=== PATIENT | male | born 1995 | race Two or more races ===

== ENCOUNTER 2024-03-29 14:49 | Emergency (ER) | payer MEDICAID, SELFPAY ==
[2024-03-29 14:49] VITALS: BMI 28.1
[2024-03-29 15:10] VITALS: BP 136/88; PULSE 98; RESP 16; TEMP 37.1; O2SAT 98
--- NOTE | 2024-03-29 15:11 | EDNOTE_ITS ---
<Statement entered by Padmini Ferguson MD - 03/29/24 17:52> As co-signing physician, I was present and available for consult prn. I concur with the plan and care as documented by the midlevel provider. Nausea/Vomit./Diarrhea-RME/HPI General Chief complaint: Nausea/Vomiting/Diarrhea Stated complaint: VOMITING TODAY Time Seen by Provider: 03/29/24 14:53 Arrival date/time: 03/29/24 14:49 28-year-old male presents emergency department complaints of nausea vomiting began today patient reports drinking alcohol last night. Patient ports no headache no dizziness no chest pain no shortness of breath Limitations: no limitations Related Data Previous Rx's ?Medication ?Instructions ?Recorded aluminum-mag hydroxide-simethicone 10 ml PO Q6H PRN indigestion #355 03/07/19 200 mg-200 mg-20 mg/5 mL oral susp mL (Maalox Advanced) ondansetron 4 mg disintegrating 4 mg PO Q8H PRN nausea and 03/07/19 tablet vomiting #10 tabs ibuprofen 800 mg tablet 800 mg PO TID #30 tabs 05/19/19 ibuprofen 800 mg tablet 800 mg PO TID PRN pain #30 tabs 06/20/19 ibuprofen 800 mg tablet 800 mg PO TID PRN pain #30 tabs 08/28/20 azithromycin 500 mg tablet See Rx Instructions PO .COMPLEX #3 09/13/23 tabs loperamide 2 mg capsule 2 mg PO Q6H PRN loose stool #10 09/13/23 (Anti-Diarrheal (loperamide)) caps ondansetron 4 mg disintegrating 4 mg PO Q8H PRN nausea and 03/29/24 tablet vomiting #10 tabs Allergies Allergy/AdvReac Type Severity Reaction Status Date / Time No Known Allergies Allergy Verified 03/29/24 14:50 Review of Systems Review of Systems Systems Reviewed: All systems reviewed, normal except as documented Constitutional Constitutional: Reports system reviewed and no additional complaints, except as documented, Denies fever(s) and Denies headache(s) Eyes Eyes: Reports system reviewed and no additional complaints, except as documented and Denies blurry vision ENT Ears, Nose, Mouth, and Throat: Reports system reviewed and no additional complaints, except as documented, Denies headache(s), Denies nasal congestion and Denies nasal discharge Cardiovascular Cardiovascular: Reports system reviewed and no additional complaints, except as documented, Denies chest pain and Denies dyspnea Respiratory Respiratory: Reports system reviewed and no additional complaints, except as documented, Denies chest congestion, Denies cough and Denies dyspnea Gastrointestinal Gastrointestinal: Reports system reviewed and no additional complaints, except as documented, Denies abdominal pain, Reports nausea and Reports vomiting Integumentary/Breasts Skin/Breast: Reports system reviewed and no additional complaints, except as documented and Denies rash Neurologic Neurologic: Reports system reviewed and no additional complaints, except as documented, Reports as per HPI and Denies headache(s) Past Medical History Past Medical History NEUROLOGIC: Negative Neurological Disorders CARDIAC: Negative Cardiac Disorders ED Exam General Limitations: Present no limitations General appearance: Present alert and in no apparent distress Head Head exam: Present atraumatic, normocephalic and normal inspection Eye Eye exam: Present normal appearance, PERRL and EOMI; Absent conjunctival injection ENT ENT exam: Present normal exam, normal oropharynx and mucous membranes moist Neck Neck exam: Present normal inspection, full ROM and trachea midline Chest Chest inspection: Present normal inspection and symmetric chest wall rise Respiratory Respiratory exam: Present normal lung sounds bilaterally; Absent respiratory distress Cardiovascular Cardiovascular exam: Present regular rate, normal rhythm and normal heart sounds Abdominal Exam Abdominal exam: Present soft and normal bowel sounds; Absent distention, tenderness, guarding, rebound or rigidity Extremities Exam Extremities exam: Present normal inspection and full ROM Back Exam Back exam: Present normal inspection and full ROM Neurological Exam Neurological exam: Present alert, oriented X3, CN II-XII intact, normal gait and reflexes normal; Absent motor sensory deficit Psychiatric Psychiatric exam: Present normal affect and normal mood Skin Skin exam: Present warm, dry, intact and normal color; Absent rash Course Quality Measures none Orders Category Date Time Status Bedside Influenza A&B Antigen Test NOW Care 03/29/24 15:11 Completed Metoclopramide Inj [Reglan Inj] Med 03/29/24 15:11 Discontinued 10 mg IM X1 ONE Ondansetron Odt [Zofran Odt] Med 03/29/24 15:11 Discontinued 4 mg PO X1 ONE Vital Signs Vital signs: Vital Signs Temperature 98.7 F 03/29/24 15:10 Pulse Rate 98 03/29/24 15:10 Respiratory Rate 16 03/29/24 15:10 Blood Pressure 136/88 H 03/29/24 15:10 Pulse Oximetry (%) 98 03/29/24 15:10 Oxygen Delivery Method Room Air 03/29/24 15:10 O2 saturation 98% on room air within normal limits Nausea/Vomiting/Diarrhea MDM Narrative MDM Narrative:: 28-year-old male presents emergency department complaints of nausea vomiting began today patient reports drinking alcohol last night. Patient ports no headache no dizziness no chest pain no shortness of breath On exam patient does not appear ill or toxic patient does not appear in acute distress Patient checked for flu which came back positive Patient medicated for vomiting Patient discharged home in no distress to follow-up with primary care doctor in the next 24 to 48 hours and for any worsening symptoms to return to the ER immediately Patient data External records reviewed:: [facility] previous records Clinical information provided by:: patient Social determinants that could affect healthcare access:: none Patient has the following chronic illnesses:: None How is presenting disease/condition affected by chronic disease/condition?: no chronic disease Evaluation data The following diagnostics were reviewed and interpreted by me:: lab results Lab and/or radiology exams considered but not ordered:: Lab obtained Interpretation Summary: Reviewed by me Medications / Prescriptions Medications / Prescriptions considered but not ordered:: Given Medication administrations:: Medication Administration History Discontinued Medications Metoclopramide HCl (Metoclopramide Inj 5 Mg/Ml Vial 2 Ml) 10 mg IM X1 ONE; Protocol Stop: 03/29/24 15:12 Last Admin: 03/29/24 15:15 Dose: 10 mg Documented By: Ondansetron HCl (Ondansetron Odt 4 Mg Tabrap) 4 mg PO X1 ONE; Protocol Stop: 03/29/24 15:12 Last Admin: 03/29/24 15:14 Dose: 4 mg Documented By: Given Consultations Consultation(s) initiated? (list below): No Diagnosis Nausea Differential Diagnosis: gastroenteritis and other (Nausea vomiting) Most likely diagnosis given after review of the tests above:: Nausea vomiting Admission Indicated Admission indicated?: not indicated Admission Request Was there a request for admission?: No Disposition Plan Disposition Plan: Discharge Discharge Attestation Discharge Attestation: The patient and all family members were given an opportunity to ask questions and understood the discharge instructions. Discharge instructions specifically effects, indications for sooner follow up or return to the emergency department, and the expected course of current diagnosis. Patient condition: Stable Discharge Plan Plan Patient Disposition: HOME (Self Care) Disposition Comment: Stable Prescriptions/Referrals Prescriptions/Med Rec: New ondansetron 4 mg tablet,disintegrating 4 mg PO Q8H PRN (Reason: nausea and vomiting) Qty: 10 0RF No Action alum-mag hydroxide-simeth [Maalox Advanced] 200-200-20 mg/5 mL suspension 10 ml PO Q6H PRN (Reason: indigestion) Qty: 355 0RF ondansetron 4 mg tablet,disintegrating 4 mg PO Q8H PRN (Reason: nausea and vomiting) Qty: 10 0RF ibuprofen 800 mg tablet 800 mg PO TID PRN (Reason: pain) Qty: 30 0RF ibuprofen 800 mg tablet 800 mg PO TID Qty: 30 0RF ibuprofen 800 mg tablet 800 mg PO TID PRN (Reason: pain) Qty: 30 0RF azithromycin 500 mg tablet See Rx Instructions .ROUTE .COMPLEX Qty: 3 0RF Rx Instructions: For 500 mg dose pack: take 500 mg once daily for 3 days loperamide [Anti-Diarrheal (loperamide)] 2 mg capsule 2 mg PO Q6H PRN (Reason: loose stool) Qty: 10 0RF Problem List Clinical Impression: Nausea & vomiting, Influenza A Patient/Caregiver Discharge Instructions Education Materials: ED Vomiting (Adult) Additional Instructions: Please follow up with your primary care doctor in the next 24-48hrs for any worsening symptoms return here immediately Print Language: Czech Stand Alone Forms: Renetta Award Info., Work/School Release, Patient Portal Info Letter PA/HOISTER Supervising Physician PA/HOISTER Supervising Physician: Dr. FERGUSON
[2024-03-29] MEDS: ONDANSETRON ODT 4 MG TABRAP PO (15:14)
[2024-03-29] MEDS: METOCLOPRAMIDE INJ 5 MG/ML VIAL 2 ML 10 MG IM (15:15)
== END 2024-03-29 15:25 | disposition home or self-care (01) ==
LOC: SERX 15:26
PROVIDERS: Emergency Provider Emergency Medicine; PCP Family Medicine
DX: J10.1 Influenza due to other identified influenza virus with other respiratory manifestations (principal)
CPT/HCPCS: 87400; 96372; 99283; J2765; Q0162

== ENCOUNTER 2024-04-23 14:16 | Emergency (ER) | payer MEDICAID, SELFPAY ==
[2024-04-23 14:17] VITALS: BMI 27.3
[2024-04-23 14:29] VITALS: BP 148/89; PULSE 100; RESP 18; TEMP 37.7; O2SAT 97
--- NOTE | 2024-04-23 14:41 | EDNOTE_ITS ---
Upper Respiratory Inf. RME/HPI General Chief Complaint: Flu Like Symptoms Stated Complaint: Flu like symptoms: Cough, fever, bodyaches, nausea Time Seen by Provider: 04/23/24 14:23 Arrival date/time: 04/23/24 14:16 This is a 28-year-old male that comes in with complaints of cough, congestion, fever, chills, body aches and nausea that started on Wednesday. Patient reports that his girlfriend is currently sick as well along with coworkers at work. Patient denies any past medical history. Patient reports taking DayQuil and Tylenol. Related Data Previous Rx's ?Medication ?Instructions ?Recorded aluminum-mag hydroxide-simethicone 10 ml PO Q6H PRN in digestion #355 03/07/19 200 mg-200 mg-20 mg/5 mL oral susp mL (Maalox Advanced) ondansetron 4 mg disintegrating 4 mg PO Q8H PRN nausea and 03/07/19 tablet vomiting #10 tabs ibuprofen 800 mg tablet 800 mg PO TID #30 tabs 05/19 ibuprofen 800 mg tablet 800 mg PO TID PRN pain #30 t abs 06/20/19 ibuprofen 800 mg tablet 800 mg PO TID PRN pain #30 t abs 08/28/20 azithromycin 500 mg tablet See Rx Instructions PO .COM PLEX #3 09/13/23 tabs loperamide 2 mg capsule 2 mg PO Q6H PRN loose stool #10 09/13/23 (Anti-Diarrheal (loperamide)) caps ondansetron 4 mg disintegrating 4 mg PO Q8H PRN nausea and 03/29/24 tablet vomiting #10 tabs ibuprofen 800 mg tablet 800 mg PO Q6H PRN pain #14 t abs 04/23/24 ondansetron 4 mg disintegrating 4 mg PO Q6H PRN nausea and 04/23/24 tablet vomiting #14 tabs Allergies Allergy/AdvReac Type Severity Reaction Status Date / Time No Known Allergies Allergy Verified 03/29/24 14:50 Review of Systems Review of Systems Systems Reviewed: All systems reviewed, normal except as documented Past Medical History Past Medical History NEUROLOGIC: Negative Neurological Disorders CARDIAC: Negative Cardiac Disorders ED Exam General General appearance: Present alert and in no apparent distress Head Head exam: Present atraumatic Eye Eye exam: Present normal appearance, PERRL and EOMI ENT ENT exam: Present normal exam, normal oropharynx and mucous membranes moist Neck Neck exam: Present normal inspection, full ROM and trachea midline Chest Chest inspection: Present normal inspection and symmetric chest wall rise Respiratory Respiratory exam: Present normal lung sounds bilaterally Cardiovascular Cardiovascular exam: Present regular rate, normal rhythm and normal heart sounds Abdominal Exam Abdominal exam: Present soft Extremities Exam Extremities exam: Present normal inspection and full ROM Back Exam Back exam: Present normal inspection and full ROM Neurological Exam Neurological exam: Present alert, oriented X3 and CN II-XII intact Psychiatric Psychiatric exam: Present normal affect and normal mood Skin Skin exam: Present warm, dry, intact and normal color Course Quality Measures none Orders Category Date Time Status Bedside COVID-19 Antigen Test NOW Care 04/23/24 14:40 Completed Bedside Influenza A&B Antigen Test NOW Care 04/23/24 14:40 Completed Ibuprofen Tab [Motrin Tab] Med 04/23/24 14:40 Discontinued 800 mg PO X1 ONE Ondansetron Odt [Zofran Odt] Med 04/23/24 14:40 Discontinued 4 mg PO X1 ONE Vital Signs Vital signs: Vital Signs Temperature 99.9 F 04/23/24 14:29 Pulse Rate 100 04/23/24 14:29 Respiratory Rate 18 04/23/24 14:29 Blood Pressure 148/89 H 04/23/24 14:29 Pulse Oximetry (%) 97 04/23/24 14:29 Oxygen Delivery Method Room Air 04/23/24 14:29 Upper Respiratory Infection MDM Narrative MDM Narrative:: Pt given ibuprofen and zofran. Pt positive for influenza A. Will tx with supportive care. Pt told to follow up with primary provider in 1-2 days. Come back to ED if symptoms change or worsen. Patient data External records reviewed:: [facility] previous records Clinical information provided by:: patient Social determinants that could affect healthcare access:: none Patient has the following chronic illnesses:: none How is presenting disease/condition affected by chronic disease/condition?: no chronic disease Evaluation data The following diagnostics were reviewed and interpreted by me:: lab results Lab and/or radiology exams considered but not ordered:: none Interpretation Summary: see note Medications / Prescriptions Medications or Prescriptions considered but not ordered:: none Medication administrations:: Medication Administration History Discontinued Medications Ibuprofen (Ibuprofen Tab 400 Mg Tablet) 800 mg PO X1 ONE Stop: 04/23/24 14:41 Last Admin: 04/23/24 15:14 Dose: 800 mg Documented By: Ondansetron HCl (Ondansetron Odt 4 Mg Tabrap) 4 mg PO X1 ONE; Protocol Stop: 04/23/24 14:41 Last Admin: 04/23/24 15:14 Dose: 4 mg Documented By: see mar Consultations Consultation(s) initiated? (list below): No Diagnosis Upper Respiratory Differential Diagnosis: upper respiratory infection, viral infection and influenza Most likely diagnosis given after review of the tests above:: influenza Admission Indicated Admission indicated?: not indicated Admission Request Was there a request for admission?: No Disposition Plan Disposition Plan: Discharge Discharge Attestation Discharge Attestation: The patient and all family members were given an opportunity to ask questions and understood the discharge instructions. Discharge instructions specifically effects, indications for sooner follow up or return to the emergency department, and the expected course of current diagnosis. Patient condition: Stable Discharge Plan Plan Patient Disposition: HOME (Self Care) Patient condition on transfer: Stable Prescriptions/Referrals Prescriptions/Med Rec: New ibuprofen 800 mg tablet 800 mg PO Q6H PRN (Reason: pain) Qty: 14 0RF ondansetron 4 mg tablet,disintegrating 4 mg PO Q6H PRN (Reason: nausea and vomiting) Qty: 14 0RF No Action alum-mag hydroxide-simeth [Maalox Advanced] 200-200-20 mg/5 mL suspension 10 ml PO Q6H PRN (Reason: indigestion) Qty: 355 0RF ondansetron 4 mg tablet,disintegrating 4 mg PO Q8H PRN (Reason: nausea and vomiting) Qty: 10 0RF ibuprofen 800 mg tablet 800 mg PO TID PRN (Reason: pain) Qty: 30 0RF ibuprofen 800 mg tablet 800 mg PO TID Qty: 30 0RF ibuprofen 800 mg tablet 800 mg PO TID PRN (Reason: pain) Qty: 30 0RF azithromycin 500 mg tablet See Rx Instructions .ROUTE .COMPLEX Qty: 3 0RF Rx Instructions: For 500 mg dose pack: take 500 mg once daily for 3 days loperamide [Anti-Diarrheal (loperamide)] 2 mg capsule 2 mg PO Q6H PRN (Reason: loose stool) Qty: 10 0RF ondansetron 4 mg tablet,disintegrating 4 mg PO Q8H PRN (Reason: nausea and vomiting) Qty: 10 0RF Referrals: Johny Cortes MD [Primary Care Provider] - In 1 week Problem List Clinical Impression: Influenza A, Vomiting Patient/Caregiver Discharge Instructions Discharge Activity: activity as tolerated Education Materials: ED Influenza (Adult), ED Vomiting (Adult) Additional Instructions: Follow up with primary provider in 1-2 days. Come back to ED if symptoms change or worsen. Drink plenty of fluids. for fever may alternate tylenol and ibuprofen. Print Language: Romansh Stand Alone Forms: Renetta Award Info., Patient Portal Info Letter PA/FISH SKINNING MACHINE FEEDER Supervising Physician PA/F[employer] SKINNING MACHINE FEEDER Supervising Physician: lucas
[2024-04-23] MEDS: IBUPROFEN TAB 400 MG TABLET 800 MG PO (15:14)
[2024-04-23] MEDS: ONDANSETRON ODT 4 MG TABRAP PO (15:14)
== END 2024-04-23 16:15 | disposition home or self-care (01) ==
PROVIDERS: Emergency Provider Emergency Medicine; PCP Family Medicine
DX: J10.1 Influenza due to other identified influenza virus with other respiratory manifestations (principal)
CPT/HCPCS: 87400; 87811; 99283; Q0162; A9270

== ENCOUNTER → 2024-08-18 | Outpatient (CLI) | payer MEDICAID, SELFPAY ==
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
== END | disposition home or self-care (01) ==
PROVIDERS: PCP Physician Assistant
DX: S62.390A Other fracture of second metacarpal bone, right hand, initial encounter for closed fracture (principal); Y09 Assault by unspecified means
CPT/HCPCS: 73110; 73130

== ENCOUNTER 2024-08-26 20:09 | Emergency (ER) | payer MEDICAID, SELFPAY ==
[2024-08-26 20:10] VITALS: BMI 27.3
--- NOTE | 2024-08-26 20:53 | EDNOTE_ITS ---
Nausea/Vomit./Diarrhea-RME/HPI General Chief complaint: Nausea/Vomiting/Diarrhea Stated complaint: DIARRHEA FOR 4 DAYS Time Seen by Provider: 08/26/24 20:53 Arrival date/time: 08/26/24 20:09 RME / HPI RME / HPI Narrative: This section includes all my notes and documentations, including HPI, PE, and ED course. Jack Jarvis MD HPI: 29 y/o male with Hx of Ulcer presents to ED c/o aggressive diarrhea and abdominal pain x 4 days with nausea and anorexia. No fever. No other complaints. ROS: All negative except as documented in HPI. Physical Exam: General: Alert and oriented. No acute distress when remaining still. Eyes: Conjunctivae and lids clear. ENT: No nasal congestion. Neck: Supple. Heart: RRR. Lungs: No respiratory distress. Good air movement. No rhonchi, wheezing, rales. Abdomen: Soft and nontender. Normal bowel sounds. No distension. No rebound or guarding. Back: No CVA tenderness. Skin: Warm and dry. Neuro: Alert and oriented X 3. I reviewed all diagnostic test results. My interpretation of the abdomen x-ray is no acute findings. Blood tests unremarkable. At this point, diagnoses include gastroenteritis. Treatment here included Zofran, Flagyl. Recommend outpatient treatment. Based on my best medical judgment, made decision no further evaluation or treatment indicated at this time. Patient understands and agrees to the [facility] instructions customized and printed, see below. Discharge Instructions from Dr. Jarvis: 1. After evaluation, you have stomach flu.? 2. Take Flagyl to kill the germs causing the infection. 3. Your job is to stay hydrated.? Zofran for nausea/vomiting.? Increase oral fluid and maintain clear urine.? If dark or yellow, increase oral fluid. 4. Do not take any medications to stop your diarrhea.? But try to replenish the fluid and electrolytes you are losing. 5. Some good choices are water (but not only water because it will cause electrolyte abnormalities), sports drinks like Gatorade (with less sugar content), coconut water, chicken stock, and other fluid with electrolytes (like Pedialyte). 6. See your private doctor on 08/31/2024 if not completely better. 7. Seek immediate medical care with worsening or with any concerns. Jack Jarvis MD Related Data Previous Rx's ?Medication ?Instructions ?Recorded aluminum-mag hydroxide-simethicone 10 ml PO Q6H PRN in digestion #355 03/07/19 200 mg-200 mg-20 mg/5 mL oral susp mL (Maalox Advanced) ondansetron 4 mg disintegrating 4 mg PO Q8H PRN nausea and 03/07/19 tablet vomiting #10 tabs ibuprofen 800 mg tablet 800 mg PO TID #30 tabs 05/19 ibuprofen 800 mg tablet 800 mg PO TID PRN pain #30 t abs 06/20/19 ibuprofen 800 mg tablet 800 mg PO TID PRN pain #30 t abs 08/28/20 azithromycin 500 mg tablet See Rx Instructions PO .COM PLEX #3 09/13/23 tabs loperamide 2 mg capsule 2 mg PO Q6H PRN loose stool #10 09/13/23 (Anti-Diarrheal (loperamide)) caps ondansetron 4 mg disintegrating 4 mg PO Q8H PRN nausea and 03/29/24 tablet vomiting #10 tabs ibuprofen 800 mg tablet 800 mg PO Q6H PRN pain #14 t abs 04/23/24 ondansetron 4 mg disintegrating 4 mg PO Q6H PRN nausea and 04/23/24 tablet vomiting #14 tabs metronidazole 500 mg tablet 500 mg PO BID 3 days #6 ta bs 08/26/24 ondansetron 4 mg disintegrating 4 mg PO TID PRN nausea and 08/26/24 tablet vomiting 30 days #10 tabs Allergies Allergy/AdvReac Type Severity Reaction Status Date / Time No Known Allergies Allergy Verified 08/26/24 20:10 Review of Systems Review of Systems Systems Reviewed: All systems reviewed, normal except as documented Past Medical History Past Medical History GASTROINTESTINAL: Positive Ulcer ED Exam Narrative Physical exam: Refer to HPI above Course Quality Measures none Orders Category Date Time Status KUB [XR abdomen 1V] Stat Exams 08/26/24 20:54 Completed Amylase Stat Lab 08/26/24 21:26 Completed Bilirubin,Direct Stat Lab 08/26/24 21:26 Completed CBC Stat Lab 08/26/24 21:26 Completed CMP [Comprehensive Metabolic Panel] Stat Lab 08/26/24 21:26 Completed Lipase Stat Lab 08/26/24 21:26 Completed Magnesium Stat Lab 08/26/24 21:26 Completed Ondansetron Odt [Zofran Odt] Med 08/26/24 22:43 Discontinued 4 mg PO X1 ONE metroNIDAZOLE [Flagyl] Med 08/26/24 22:43 Discontinued 500 mg PO X1 ONE Vital Signs Vital signs: Vital Signs Temperature 98.3 F 08/26/24 20:56 Pulse Rate 74 08/26/24 20:56 Respiratory Rate 18 08/26/24 20:56 Blood Pressure 130/66 08/26/24 20:56 Pulse Oximetry (%) 100 08/26/24 20:56 Oxygen Delivery Method Room Air 08/26/24 20:56 Nausea/Vomiting/Diarrhea MDM Narrative MDM Narrative:: Scribe Attestation: IJanki, am scribing for and in the presence of Dr. Jarvis. Provider Notation: Although this document has been carefully reviewed, there may still be some phonetic and other typographical errors.? These errors are purely grammatical due to imperfections in the software program and should not be construed in any way to? compromise the substance of the patient's medical care during this visit. 29 y/o male with Hx of Ulcer presents to ED c/o aggressive diarrhea and abdominal pain x 4 days. He states abdominal pain began after he discontinued Ibuprofen for forearm fracture. Patient has tried Pepto Bismal and Imodium with some relief. Denies cough and congestion, or any present abdominal pain. No other complaints. Patient data External records reviewed:: [facility] previous records (Reviewed prior ED records from 04/23/24. Patient was seen for Influenza A.) Clinical information provided by:: patient Social determinants that could affect healthcare access:: none Patient has the following chronic illnesses:: Ulcer How is presenting disease/condition affected by chronic disease/condition?: exacerbated by Evaluation data The following diagnostics were reviewed and interpreted by me:: lab results and radiology exam(s) Lab and/or radiology exams considered but not ordered:: None Interpretation Summary: I reviewed all diagnostic test results. My interpretation of the abdomen x-ray is no acute findings. Blood tests unremarkable. Medications / Prescriptions Medications / Prescriptions considered but not ordered:: None Medication administrations:: Medication Administration History Discontinued Medications Metronidazole (Metronidazole 250 Mg Tablet) 500 mg PO X1 ONE Stop: 08/26/24 22:44 Last Admin: 08/26/24 23:00 Dose: 500 mg Documented By: RACHEL Ondansetron HCl (Ondansetron Odt 4 Mg Tabrap) 4 mg PO X1 ONE; Protocol Stop: 08/26/24 22:44 Last Admin: 08/26/24 23:00 Dose: 4 mg Documented By: Korina Lam. Consultations Consultation(s) initiated? (list below): No Diagnosis Nausea Differential Diagnosis: traveler's diarrhea, food poisoning, gastroenteritis, clostridium difficile infection, drug-induced nausea and vomi ting and dehydration Most likely diagnosis given after review of the tests above:: Stomach flu Admission Indicated Admission indicated?: not indicated Explain why admission is indicated or not indicated:: With no serious illness, there was no indication for admission.? Admission Request Was there a request for admission?: No Disposition Plan Disposition Plan: Discharge Discharge Attestation Discharge Attestation: The patient and all family members were given an opportunity to ask questions and understood the discharge instructions. Discharge instructions specifically effects, indications for sooner follow up or return to the emergency department, and the expected course of current diagnosis. Patient condition: Stable Discharge Plan Plan Patient Disposition: HOME (Self Care) Prescriptions/Referrals Prescriptions/Med Rec: New metronidazole 500 mg tablet 500 mg PO BID 3 Days Qty: 6 0RF ondansetron 4 mg tablet,disintegrating 4 mg PO TID PRN (Reason: nausea and vomiting) 30 Days Qty: 10 0RF No Action alum-mag hydroxide-simeth [Maalox Advanced] 200-200-20 mg/5 mL suspension 10 ml PO Q6H PRN (Reason: indigestion) Qty: 355 0RF ondansetron 4 mg tablet,disintegrating 4 mg PO Q8H PRN (Reason: nausea and vomiting) Qty: 10 0RF ibuprofen 800 mg tablet 800 mg PO TID PRN (Reason: pain) Qty: 30 0RF ibuprofen 800 mg tablet 800 mg PO TID Qty: 30 0RF ibuprofen 800 mg tablet 800 mg PO TID PRN (Reason: pain) Qty: 30 0RF azithromycin 500 mg tablet See Rx Instructions .ROUTE .COMPLEX Qty: 3 0RF Rx Instructions: For 500 mg dose pack: take 500 mg once daily for 3 days loperamide [Anti-Diarrheal (loperamide)] 2 mg capsule 2 mg PO Q6H PRN (Reason: loose stool) Qty: 10 0RF ondansetron 4 mg tablet,disintegrating 4 mg PO Q8H PRN (Reason: nausea and vomiting) Qty: 10 0RF ibuprofen 800 mg tablet 800 mg PO Q6H PRN (Reason: pain) Qty: 14 0RF ondansetron 4 mg tablet,disintegrating 4 mg PO Q6H PRN (Reason: nausea and vomiting) Qty: 14 0RF Problem List Clinical Impression: Stomach flu Patient/Caregiver Discharge Instructions Discharge Activity: activity as tolerated Education Materials: ED Gastroenteritis, Viral (Adult) Additional Instructions: Discharge Instructions from Dr. Jarvis: 1. After evaluation, you have stomach flu.? 2. Take Flagyl to kill the germs causing the infection. 3. Your job is to stay hydrated.? Zofran for nausea/vomiting.? Increase oral fluid and maintain clear urine.? If dark or yellow, increase oral fluid. 4. Do not take any medications to stop your diarrhea.? But try to replenish the fluid and electrolytes you are losing. 5. Some good choices are water (but not only water because it will cause electrolyte abnormalities), sports drinks like Gatorade (with less sugar content), coconut water, chicken stock, and other fluid with electrolytes (like Pedialyte). 6. See your private doctor on 08/31/2024 if not completely better. 7. Seek immediate medical care with worsening or with any concerns. Print Language: Arabic Stand Alone Forms: [facility]etta Award Info., Patient Portal Info Letter
--- NOTE | 2024-08-26 20:54 | XR_ITS ---
Examination: Abdomen AP single view Technique: AP portable supine abdomen, single view Exam date and time: August 26, 2024 2102 hours INDICATIONS: Diarrhea 1 week. FINDINGS: Normal bowel gas pattern. No free air The osseous structures are intact IMPRESSION: Negative examination
[2024-08-26 20:56] VITALS: BP 130/66; PULSE 74; RESP 18; TEMP 36.8; O2SAT 100
[2024-08-26 21:43] LABS: Basophils # (Auto) 0.1 Thou/mm3 (0.0-0.2); Basophils % (Auto) 1 % (0-2.5); Eosinophils # (Auto) 0.1 Thou/mm3 (0.0-0.5); Eosinophils % (Auto) 2 % (0-10); Hematocrit 43.4 % (41.0-53.0); Hemoglobin 16.1 g/dL (13.5-16.0); Immature Granulocytes % (Auto) 0 % (0-0); Immature Granulocytes Auto 0.02 Thou/mm3 (0.00-0.00); Lymphocytes # (Auto) 2.1 Thou/mm3 (1.0-4.8); Lymphocytes % (Auto) 30 % (10-50); Mean Corpuscular HGB Conc 37.1 g/dl (31.0-37.0); Mean Corpuscular Hemoglobin 29.9 pg (25.0-35.0); Mean Corpuscular Volume 81 fL (80-100); Monocytes # (Auto) 0.8 Thou/mm3 (0.0-0.8); Monocytes % (Auto) 12 % (0-12); Neutrophils # (Auto) 3.8 Thou/mm3 (1.8-7.7); Neutrophils % (Auto) 55 % (37-80); Nucleated Red Blood Cell % 0 /100 WBC (0); Platelet Count 292 Thou/mm3 (140-440); RDW Standard Deviation 34.1 fL (35.1-43.9); Red Blood Count 5.39 Miln/mm3 (4.50-5.90); White Blood Count 6.8 Thou/mm3 (3.8-10.6)
[2024-08-26 22:13] LABS: Carbon Dioxide 27.7 mMol/L (20.0-31.0); Chloride 104 mMol/L (98-107); Potassium 4.1 mMol/L (3.4-5.1); Sodium 143 mMol/L (136-145)
[2024-08-26 22:14] LABS: Alanine Aminotransferase 44 U/L (10-49); Albumin, Serum 4.6 gm/dL (3.5-5.0); Alkaline Phosphatase 77 U/L (46-116); Amylase 65 U/L (30-118); Anion Gap 11 (7-16); Aspartate Amino Transferase 30 U/L (0-34); BUN/Creatinine Ratio 14 Ratio (12-20); Bilirubin,Direct 0.2 mg/dL (0.0-0.3); Bilirubin,Total 0.7 mg/dL (0.3-1.2); Blood Urea Nitrogen 14 mg/dL (9-23); Calcium 8.9 mg/dL (8.3-10.6); Calcium (Corrected) 8.9 mg/dL (8.5-10.1); Estimated Creatinine Clearance 107.4 mL/min (>60); Globulin 2.3 gm/dL (2.3-3.5); Glucose 102 mg/dL (74-106); Lipase 40 U/L (12-53); Magnesium 1.8 mg/dL (1.6-2.6); Osmolality,Calculated 285 (275-295); Total Protein 6.9 gm/dL (5.7-8.2); eGFR > 60 See Note
[2024-08-26] MEDS: metroNIDAZOLE 250 MG TABLET 500 MG PO (23:00)
[2024-08-26] MEDS: ONDANSETRON ODT 4 MG TABRAP PO (23:00)
[2024-08-26 23:11] VITALS: BP 155/84; PULSE 68; RESP 17; TEMP 36.8; O2SAT 99
== END 2024-08-26 23:16 | disposition home or self-care (01) ==
PROVIDERS: Emergency Provider Emergency Medicine; PCP Nurse Practitioner Family
DX: A08.4 Viral intestinal infection, unspecified (principal)
CPT/HCPCS: 36415; 74018; 80053; 82150; 82248; 83690; 83735; 85025; 99283; Q0162; A9270